=== PATIENT | female | born 1980 | race Caucasian/White ===

== ENCOUNTER 2016-11-20 00:33 | Emergency (ER) | payer BC, OTHER ==
[~2016-11-20] VITALS: Ht 167.6 cm; Wt 68.0 kg
[2016-11-20 01:14] VITALS: Ht 167.6 cm; Wt 68.0 kg
--- NOTE | 2016-11-20 01:50 | ERA ---
ER Documentation Chief Complaint Date/Time DATE: 11/20/16 TIME: 01:48 Chief Complaint Vomitting nausea with abdominal pain onset 1 day Patient is Diabetic HPI The patient is a 36-year-old female, presenting to the ER because of right upper quadrant abdominal pain for 2-1/2 weeks. She was seen by her physician who ordered an O2 sat that show gallstones. She came to the ER because the pain medication did not relieve the pain. The pain is 10/10, associated with vomiting, mostly mucous, and diarrhea. He denies hematochezia, hematemesis. She denies fever, chills, neck pain, chest pain, dyspnea. She does not smoke, drink Past medical history: Cholelithiasis, diabetes mellitus Past surgical history: 4 ROS All systems reviewed and are negative except as per history of present illness. Medications Home Meds Active Scripts Hydrocodone/Acetaminophen ([place] 5-325 Tablet) 1 Each Tablet, 1 TAB PO Q6H Y for PAIN, #7 TAB Prov:SPENSER BARR MD 11/20/16 Physical Exam Vitals Vital Signs Date Time Temp Pulse Resp B/P Pulse Ox O2 Delivery O2 Flow Rate FiO2 11/20/16 01:14 98.7 78 20 122/72 98 Physical Exam Const: No acute distress. Head: Atraumatic. Eyes: Normal Conjunctiva. ENT: Normal External Ears, Nose and Mouth. Neck: Full range of motion. No meningismus. Resp: Clear to auscultation bilaterally. Cardio: Regular rate and rhythm, no murmurs. Abd: Soft, non distended, normal bowel sounds, mild right upper quadrant tenderness, no right lower quadrant, CVA, rigidity, rebound tenderness Skin: No petechiae or rashes. Back: No midline or flank tenderness. Ext: No cyanosis, or edema. Neur: Awake and alert. No focal deficit Psych: Normal Mood and Affect. Result Diagram: 11/20/16 02011/20/16 0200 Results 24 hrs Laboratory Tests Test 11/20/16 02:00 11/20/16 02:36 Alanine Aminotransferase (ALT/SGPT) 42IU/L Albumin 4.4g/dl Albumin/Globulin Ratio 1.18 Alkaline Phosphatase 128IU/L Anion Gap 16 Aspartate Amino Transf (AST/SGOT) 37IU/L Basophils # 0.010^3/ul Basophils % 0.5% Blood Urea Nitrogen 14mg/dl Calcium Level 10.4mg/dl Carbon Dioxide Level 31mmol/L Chloride Level 99mmol/L Creatinine 0.56mg/dl Direct Bilirubin 0.00mg/dl Eosinophils # 0.210^3/ul Eosinophils % 2.2% Globulin 3.70g/dl Glucose Level 168mg/dl Hematocrit 45.5% Hemoglobin 15.6g/dl Indirect Bilirubin 0.3mg/dl Lipase 81U/L Lymphocytes # 2.610^3/ul Lymphocytes % 34.7% Mean Corpuscular Hemoglobin 30.9pg Mean Corpuscular Hemoglobin Concent 34.4g/dl Mean Corpuscular Volume 90.0fl Mean Platelet Volume 9.0fl Monocytes # 0.610^3/ul Monocytes % 7.7% Neutrophils # 4.210^3/ul Neutrophils % 54.9% Nucleated Red Blood Cells # 0.010^3/ul Nucleated Red Blood Cells % 0.0/100WBC Platelet Count 71739^3/UL Potassium Level 3.7mmol/L Red Blood Count 5.0610^6/ul Red Cell Distribution Width 13.8% Sodium Level 142mmol/L Total Bilirubin 0.3mg/dl Total Protein 8.1g/dl White Blood Count 7.610^3/ul Bedside Urine Blood Negative Bedside Urine Glucose (UA) 0.50% Bedside Urine Ketones (LAB) Negative Bedside Urine Leukocyte Esterase (L Trace Bedside Urine Nitrite (LAB) Negative Bedside Urine Protein (LAB) Negative Bedside Urine pH (LAB) 6.5 Current Medications Medications (Trade) Dose Ordered Sig/Emilio Route PRN Reason Start Time Stop Time Status Last Admin Dose Admin Sodium Chloride (NS) 1,000 ml @ 1,000 mls/hr Q1H STAT IV 11/20/16 01:54 11/20/16 02:53 DC 11/20/16 02:10 Morphine Sulfate (morphine) 4 mg ONCE STAT IV 11/20/16 01:54 11/20/16 01:55 DC 11/20/16 02:10 Ondansetron HCl (Zofran Inj) 4 mg ONCE STAT IV 11/20/16 01:54 11/20/16 01:55 DC 11/20/16 02:09 Levalbuterol (Xopenex Neb) 3.75 mg ONCE STAT INH 11/20/16 02:09 11/20/16 02:10 DC Ipratropium Foster (Atrovent 0.02% (Neb)) 1.5 mg ONCE STAT INH 11/20/16 02:09 11/20/16 02:10 DC Procedures/MDM MEDICAL MAKING DECISION: The patient is a 36-year-old female, presenting with acute biliary colic she was treated with 1 L normal saline for clinical dehydration, morphine 4 mg IV for, Zofran 4 mg IV for nausea with good response. The differential diagnoses considered include but are not limited to cholelithiasis, cholecystitis, cystitis, pancreatitis, hepatitis, gastritis, peptic ulcer disease, gastric ulcer, appendicitis, diverticulitis, cholangitis, choledocholithiasis, partial small bowel obstruction. Departure Diagnosis: Primary Impression: Biliary colic Condition: Good Comments She was discharged with [place] I discussed the findings with the patient. I advised the patient to follow-up with the primary physician in about 1-2 days for referral to see a general surgeon for elective cholecystectomy, sooner if needed and return if any concern. SPENSER BARR MD Nov 20, 2016 01:50
[2016-11-20] MEDS ORDERED: SOD CHLORIDE 0.9% 1,000 ML IV STA (01:54)
[2016-11-20] MEDS ORDERED: ONDANSETRON 4 MG INJ IV STA (01:54)
[2016-11-20] MEDS ORDERED: morphine 4 MG/ML VIAL IV STA (01:54)
[2016-11-20] MEDS ORDERED: LEVALBUTEROL (NEB) 1.25 MG/0.5 ML AMP INH STA (02:09)
[2016-11-20] MEDS ORDERED: IPRATROPIUM (NEB) 0.5 MG/2.5 ML AMP INH STA (02:09)
[2016-11-20 02:30] LABS: BASOPHILS % 0.5 % (0.0-2.0); EOSINOPHILS # 0.2 10^3/ul (0.0-0.5); EOSINOPHILS % 2.2 % (0.0-7.0); HEMATOCRIT 45.5 % (37.0-47.0); HEMOGLOBIN 15.6 g/dl (12.0-16.0); LYMPHOCYTES # 2.6 10^3/ul (0.8-2.9); LYMPHOCYTES % 34.7 % (15.0-51.0); MEAN CORPUSCULAR HEMOGLOBIN 30.9 pg (29.0-33.0); MEAN CORPUSCULAR HGB CONC 34.4 g/dl (32.0-37.0); MONOCYTE # 0.6 10^3/ul (0.3-0.9); MONOCYTES % 7.7 % (0.0-11.0); NEUTROPHIL # 4.2 10^3/ul (1.6-7.5); NEUTROPHILS % 54.9 % (39.0-77.0); PLATELET COUNT 218 10^3/UL (140-440); RED BLOOD COUNT 5.06 10^6/ul (4.20-5.40); RED CELL DISTRIBUTION WIDTH 13.8 % (11.5-14.5); UNCORRECTED WBC 7.6 10^3/ul (4.8-10.8); WHITE BLOOD COUNT 7.6 10^3/ul (4.8-10.8)
[2016-11-20 02:32] LABS: CONDITION 1
[2016-11-20 02:34] LABS: ALBUMIN 4.4 g/dl (3.3-4.9); POTASSIUM 3.7 mmol/L (3.5-5.1)
[2016-11-20 02:36] LABS: BILIRUBIN,INDIRECT 0.3 mg/dl (0-1.1); BILIRUBIN,TOTAL 0.3 mg/dl (0.2-1.3); CREATININE 0.56 mg/dl (0.44-1.00)
[2016-11-20 02:36] LABS: URINE BLOOD (Dip) POC Negative (NEGATIVE)
[2016-11-20 02:37] LABS: ALBUMIN/GLOBULIN RATIO 1.18; CALCIUM 10.4 mg/dl (8.4-10.2); TOTAL PROTEIN 8.1 g/dl (6.1-8.1)
[2016-11-20] MEDS ORDERED: HYDR-906 PO (03:07)
[2016-11-20 03:32] VITALS: BP 119/83; PULSE 78; RESP 18; TEMP 97.6
== END 2016-11-20 03:36 | disposition home or self-care (01) ==
LOC: E/R 00:33
DX: K80.50 Calculus of bile duct without cholangitis or cholecystitis without obstruction (principal); R11.2 Nausea with vomiting, unspecified; E11.9 Type 2 diabetes mellitus without complications
CPT/HCPCS: 36415; 80053; 81003; 83690; 85025; 96374; 96375; 99284; J2270; J2405; J7030

== ENCOUNTER 2019-06-09 00:03 | Emergency (ER) | payer BC ==
[~2019-06-09] VITALS: Ht 165.1 cm; Wt 66.2 kg
[~2019-06-09 00:03] MED LIST: HYDR-4011 PO; IBUP-1542 PO
[2019-06-09 00:16] VITALS: Ht 165.1 cm; Wt 66.2 kg
[2019-06-09] MEDS ORDERED: ONDANSETRON (ODT) 4 MG TAB ODT STA (01:19)
[2019-06-09] MEDS ORDERED: KETOROLAC 30 MG INJ IM STA (01:19)
[2019-06-09] MEDS ORDERED: HYDROCODONE/APAP (5/325) TAB PO ONE (02:30)
[2019-06-09] MEDS ORDERED: morphine 4 MG/ML VIAL IV ONE (03:25)
[2019-06-09] MEDS ORDERED: IOHEXOL 300MG/ML 150 ML BTL ONE (03:45)
[2019-06-09] MEDS ORDERED: SOD CHLORIDE 0.9% 100 ML ONE (03:45)
[2019-06-09] MEDS ORDERED: SOD CHLORIDE 0.9% 1,000 ML IV ONE (05:00)
--- NOTE | 2019-06-09 05:12 | ERD ---
ER Documentation Chief Complaint Chief Complaint BIB FAMILY W/ C/O ANTERIOR MEDIAL CHEST WALL PAIN SINCE 2129 HPI 38-year-old female with history of diabetes, hypertension, hyperlipidemia p resents for chest wall pain x1 day. Patient also complains of right upper quadrant abdominal pain. The chest pain is noted to be 8 out of 10, described as a dull sensation, nonradiating. There is no diaphoresis noted. The right upper quadrant abdominal pain is noted to be 8 out of 10, nonradiating sensation, described as a dull sensation. No associated nausea vomiting and diarrhea. Denies any dysuria. Denies fevers or chills. Denies shortness of breath. No other modifying factors noted, no other treatments tried at home. ROS All systems reviewed and are negative except as per history of present illness. Medications Home Meds Active Scripts Hydrocodone/Acetaminophen ([place] 5-325 Tablet) 1 Each Tablet, 1 TAB PO Q6H PRN for PAIN, #10 TAB Prov:SPENSER BATES DO 06/09/19 Ibuprofen* (Motrin*) 600 Mg Tab, 600 MG PO Q6H PRN for PAIN AND OR ELEVATED TEMP, #30 TAB Prov:SPENSER BATES DO 06/09/19 Hydrocodone/Acetaminophen (Brady 5-325 Tablet) 1 Each Tablet, 1 TAB PO Q6H PRN for PAIN, #7 TAB Prov:SPENSER BARR MD 11/20/16 Allergies Allergies: Coded Allergies: No Known Allergy (Unverified , 06/09/19) PMhx/Soc Past medical history of high diabetes, hypertension, hyperlipidemia History of Surgery: Yes (, neck surgery, hernia surgery) Hx Neurological Disorder: No Hx Respiratory Disorders: No Hx Cardiac Disorders: No Hx Psychiatric Problems: No Hx Miscellaneous Medical Probl: No Hx Alcohol Use: No Hx Substance Use: No Hx Tobacco Use: No Smoking Status: Never smoker FmHx Family History: No coronary disease Physical Exam Vitals Vital Signs Date Temp Pulse Resp B/P (MAP) Pulse Ox O2 O2 Flow FiO2 Time Delivery Rate 06/09/19 98.4 83 20 107/73 99 00:16 (84) Physical Exam Const: No acute distress Head: Atraumatic Eyes: Normal Conjunctiva ENT: Normal External Ears, Nose and Mouth. Neck: Full range of motion. No meningismus. Resp: Clear to auscultation bilaterally Cardio: Regular rate and rhythm, no murmurs, there is anterior chest wall tenderness palpation Abd: Soft, non tender, non distended. Normal bowel sounds, no McBurney's point tenderness, there is mild right upper quadrant tenderness to palpation, no Morfin sign, no rebound or guarding noted Skin: No petechiae or rashes Back: No midline or flank tenderness Ext: No cyanosis, or edema Neur: Awake and alert Psych: Normal Mood and Affect Results 24 hrs Laboratory Tests Test 06/09/19 01:16 06/09/19 01:27 POC Beta HCG, Qualitative NEGATIVE White Blood Count 4.9 10^3/ul Red Blood Count 4.79 10^6/ul Hemoglobin 14.1 g/dl Hematocrit 41.8 % Mean Corpuscular Volume 87.3 fl Mean Corpuscular Hemoglobin 29.4 pg Mean Corpuscular Hemoglobin Concent 33.7 g/dl Red Cell Distribution Width 12.3 % Platelet Count 210 10^3/UL Mean Platelet Volume 10.6 fl Immature Granulocytes % 0.400 % Neutrophils % 47.3 % Lymphocytes % 40.2 % Monocytes % 8.2 % Eosinophils % 2.7 % Basophils % 1.2 % Nucleated Red Blood Cells % 0.0 /100WBC Immature Granulocytes # 0.020 10^3/ul Neutrophils # 2.3 10^3/ul Lymphocytes # 2.0 10^3/ul Monocytes # 0.4 10^3/ul Eosinophils # 0.1 10^3/ul Basophils # 0.1 10^3/ul Nucleated Red Blood Cells # 0.0 10^3/ul Urine Color STRAW Urine Clarity SLIGHTLY CLOUDY Urine pH 7.0 Urine Specific [place] 1.021 Urine Ketones NEGATIVE mg/dL Urine Nitrite NEGATIVE mg/dL Urine Bilirubin NEGATIVE mg/dL Urine Urobilinogen NEGATIVE mg/dL Urine Leukocyte Esterase 1+ Codie/ul Urine Microscopic RBC 1 /HPF Urine Microscopic WBC 5 /HPF Urine Squamous Epithelial Cells FEW /HPF Urine Bacteria FEW /HPF Urine Hemoglobin NEGATIVE mg/dL Urine Glucose 3+ mg/dL Urine Total Protein NEGATIVE mg/dl Sodium Level 140 mmol/L Potassium Level 4.4 mmol/L Chloride Level 99 mmol/L Carbon Dioxide Level 33 mmol/L Anion Gap 8 Blood Urea Nitrogen 17 mg/dl Creatinine 0.65 mg/dl Est Glomerular Filtrat Rate mL/min > 60 mL/min Glucose Level 328 mg/dl Calcium Level 10.5 mg/dl Total Bilirubin 0.5 mg/dl Direct Bilirubin 0.00 mg/dl Indirect Bilirubin 0.5 mg/dl Aspartate Amino Transf (AST/SGOT) 24 IU/L Alanine Aminotransferase (ALT/SGPT) 31 IU/L Alkaline Phosphatase 165 IU/L Total Protein 8.3 g/dl Albumin 4.7 g/dl Globulin 3.60 g/dl Albumin/Globulin Ratio 1.30 Lipase 114 U/L Current Medications Medications Dose Sig/Emilio Start Time Status Last (Trade) Ordered Route PRN Stop Time Admin Dose Reason Admin Ketorolac 30 mg ONCE STAT 06/09/19 DC 06/09/19 Tromethamine IM 01:19 06/09/19 01:33 (Toradol) 01:21 Ondansetron 4 mg ONCE STAT 06/09/19 DC 06/09/19 HCl (Zofran ODT 01:19 06/09/19 01:32 Odt) 01:21 1 tab ONCE ONCE 06/09/19 DC 06/09/19 Acetaminophen PO 02:30 06/09/19 02:43 / 02:31 Hydrocodone Bitart ([place]y (5/325)) Morphine 4 mg ONCE ONCE 06/09/19 DC 06/09/19 Sulfate IV 03:25 06/09/19 03:33 (morphine) 03:26 IV Flush 10 ml STK-MED 06/09/19 DC 06/09/19 (NS 10 ml) ONCE .ROUTE 03:45 06/09/19 04:06 03:46 Sodium 100 ml @ ud STK-MED 06/09/19 DC 06/09/19 Chloride ONCE .ROUTE 03:45 06/09/19 04:06 03:46 Iohexol 150 ml STK-MED 06/09/19 DC 06/09/19 (Omnipaque ONCE .ROUTE 03:45 06/09/19 04:06 300mg/ ml) 03:46 Sodium 1,000 ml @ Q1H ONCE 06/09/19 DC 06/09/19 Chloride 1,000 mls/hr IV 05:00 06/09/19 04:48 05:30 Procedures/MDM Medical Decision Making: Differential diagnosis includes but not limited to acute gastritis, acute gastroenteritis, appendicitis, cholecystitis, pancreatitis, nephrolithiasis, pyelonephritis Patient appeared well on physical exam. Nontoxic appearing. There is mild right upper quadrant tenderness palpation ED course: Patient was given Toradol, Zofran, morphine. Symptoms improved with treatment. Labs: CBC showed no severe anemia, no elevated WBC to suggest infection CMP showed no electrolyte abnormalities, there was normal kidney and liver function Lipase was normal Urine was negative UA shows signs of infection however patient is asymptomatic, denies dysuria Imaging: Gallbladder ultrasound showed a small gallbladder stone, there is no evidence of acute cholecystitis. No biliary duct dilatation noted. CT abdomen and pelvis with IV contrast shows a unremarkable appendix, there is no renal stones noted. There is noted to be small to moderate size fat- containing umbilical hernia Patient's abdominal symptoms have stabilized while in the department. No evidence of severe dehydration, sepsis, or surgical abdomen Extensive discussion with family and patient that occult disease cannot be ruled out. 8 hour recheck for repeat abdominal exam is planned Prescription(s): Patient given prescription for supportive medications and Brady short course low-dose I did run a Cures report on the patient in the last time she got Brady was about a month ago and was only about 10 tablets. Patient advised to follow up with PCP in 1-2 days. Patient advised to return to ED for new or worsening symptoms. Patient stable on discharge from the ED. Disclaimer: Inadvertent spelling and grammatical errors are likely due to EHR/dictation software use and do not reflect on the overall quality of patient care. Also, please note that the electronic time recorded on this note does not necessarily reflect the actual time of the patient encounter. Departure Diagnosis: Primary Impression: Abdominal pain Abdominal location: right upper quadrant Qualified Codes: R10.11 - Right upper quadrant pain Condition: Fair Patient Instructions: Abdominal Pain Referrals: [facility] YOU HAVE RECEIVED A MEDICAL SCREENING EXAM AND THE RESULTS INDICATE THAT YOU DO NOT HAVE A CONDITION THAT REQUIRES URGENT TREATMENT IN THE EMERGENCY DEPARTMENT. FURTHER EVALUATION AND TREATMENT OF YOUR CONDITION CAN WAIT UNTIL YOU ARE SEEN IN YOUR DOCTORS OFFICE WITHIN THE NEXT 1-2 DAYS. IT IS YOUR RESPONSIBILITY TO MAKE AN APPOINTMENT FOR FOLOW-UP CARE. IF YOU HAVE A PRIMARY DOCTOR --you should call your primary doctor and schedule an appointment IF YOU DO NOT HAVE A PRIMARY DOCTOR YOU CAN CALL OUR PHYSICIAN REFERRAL HOTLINE AT IF YOU CAN NOT AFFORD TO SEE A PHYSICIAN YOU CAN CHOSE FROM THE FOLLOWING [facility] [id number] [facility] [address] [facility] [address] [facility] [address] [facility] [address] [facility] [address] [facility] [address] Additional Instructions: Llame al doctor MAANA y debbie martínez JACK PARA DENTRO DE 1-2 VILLANUEVA.Dgale a la secretaria que nosotros le instruimos hacer esta jack.Avise o llame si neely condicin se empeora antes de la jack. Regresa aqui si peor o no mejor. SPENSER BATES DO Jun 09, 2019 05:11
[2019-06-09 05:28] VITALS: BP 109/63; PULSE 71; RESP 17
== END 2019-06-09 05:27 | disposition home or self-care (01) ==
LOC: FTE 00:03
DX: R10.11 Right upper quadrant pain (principal)
CPT/HCPCS: 36415; 74177; 76705; 80053; 81001; 81025; 83690; 85025; 93005; 96372; 96374; J1885; J2270; J7030; Q9967; Z7502; Z7610